=== PATIENT | female | born 2005 | race Caucasian/White ===

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

== ENCOUNTER 2023-01-08 23:05 | Emergency (ER) | payer OTHER ==
[~2023-01-08] VITALS: Ht 162.5 cm; Wt 44.5 kg
[~2023-01-08 23:05] MED LIST changes: +CIPRO500 MG PO; +OMEPRAZOLE20 M3 PO; +ONDANSETRON HYDR4 M1 PO; +ONDANSETRON4 MG SL
[2023-01-08] MEDS ORDERED: METHOCARBAMOL500 M1 PO (23:30)
[2023-01-08] MEDS ORDERED: NAPROXEN250 MG PO (23:30)
== END 2023-01-08 23:35 | disposition home or self-care (01) ==
LOC: ED 23:05
DX: S39.012A Strain of muscle, fascia and tendon of lower back, initial encounter (principal); Z98.890 Other specified postprocedural states; X58.XXXA Exposure to other specified factors, initial encounter; Y93.89 Activity, other specified; Y92.009 Unspecified place in unspecified non-institutional (private) residence as the place of occurrence of the external cause; Y99.8 Other external cause status

== ENCOUNTER 2024-01-25 21:19 | Emergency (ER) | payer OTHER ==
[~2024-01-25] VITALS: Ht 162.5 cm; Wt 45.4 kg
[~2024-01-25 21:19] MED LIST changes: +METHOCARBAMOL500 M1 PO; +NAPROXEN250 MG PO
== END 2024-01-25 22:14 | disposition home or self-care (01) ==
LOC: ED 21:19
DX: S30.1XXA Contusion of abdominal wall, initial encounter (principal); R11.0 Nausea; R42 Dizziness and giddiness; W22.8XXA Striking against or struck by other objects, initial encounter; Y93.89 Activity, other specified; Y92.89 Other specified places as the place of occurrence of the external cause; Y99.0 Civilian activity done for income or pay

== ENCOUNTER 2024-02-15 18:08 | Emergency (ER) | payer OTHER ==
[~2024-02-15] VITALS: Ht 162.5 cm; Wt 45.4 kg
[2024-02-15] MEDS ORDERED: Ketorolac Tromethamine 30 MG/ML VIAL IM ONE (19:20)
[2024-02-15 20:39] LABS: BASO % 0.6 % (0.0-1.0); EOS # 0.1 10*3/uL (0.0-0.4); EOS % 0.8 % (1.0-4.0); HEMATOCRIT 37.3 % (37.0-47.0); MEAN CELL VOLUME 94.9 fl (81.0-99.0); MEAN CORPUSCULAR HGB 31.8 pg (27.0-31.0); MEAN CORPUSCULAR HGB CONC 33.5 g/dl (33.0-37.0); MEAN PLATELET VOLUME 11.1 fl (9.6-12.3); MONO # 0.5 10*3/uL (0.1-1.0); MONO % 7.3 % (3.0-9.0); NEUT # 4.2 10*3/uL (2.3-7.9); NEUT % 63.5 % (47.0-73.0); PLATELET COUNT AUTOMATED 157 10*3/uL (130-400); RED BLOOD COUNT 3.93 10*6/uL (4.10-5.10); RED CELL DISTRI WIDTH 11.6 % (0-14.5); WHITE BLOOD COUNT 6.6 10*3/uL (4.8-10.8)
[2024-02-15 20:57] LABS: BUN 8 mg/dl (9-23); CHLORIDE 107 mmol/L (98-107); POTASSIUM 3.3 mmol/L (3.4-5.1)
[2024-02-15] MEDS ORDERED: MELOXICAM15 MG PO (21:07)
[2024-02-15] MEDS ORDERED: POTASSIUM CHLORIDE 20 MEQ TAB PO ONE (21:30)
== END 2024-02-15 21:25 | disposition home or self-care (01) ==
LOC: ED 18:08
PROVIDERS: Internal Medicine
DX: S09.92XA Unspecified injury of nose, initial encounter (principal); F17.200 Nicotine dependence, unspecified, uncomplicated; W22.8XXA Striking against or struck by other objects, initial encounter; Y93.89 Activity, other specified; Y92.89 Other specified places as the place of occurrence of the external cause; Y99.8 Other external cause status

== ENCOUNTER 2024-10-13 23:09 | Emergency (ER) | payer OTHER ==
[~2024-10-13] VITALS: Ht 162.5 cm; Wt 45.4 kg
[~2024-10-13 23:09] MED LIST changes: +MELOXICAM15 MG PO
== END 2024-10-14 00:22 | disposition home or self-care (01) ==
LOC: ED 23:09
DX: R07.81 Pleurodynia (principal); R11.0 Nausea; F41.9 Anxiety disorder, unspecified; Z88.6 Allergy status to analgesic agent; Z98.890 Other specified postprocedural states